=== PATIENT | female | born 1990 | race African-American/Black ===

== ENCOUNTER 2018-05-06 06:04 | Emergency (ER) | payer MEDICAID ==
[~2018-05-06] VITALS: Ht 162.6 cm; Wt 115.0 kg
[2018-05-06 06:15] VITALS: BP 136/80
[2018-05-06 06:28] LABS: GLUCOSE,POINT OF CARE 83 MG/DL (70-110)
[2018-05-06 06:57] LABS: BASOPHILS % (AUTO) 0.8 % (0.0-2.0); EOSINOPHILS % (AUTO) 0.9 % (1.0-6.0); HEMOGLOBIN 13.4 g/dL (12.0-16.0); LYMPHOCYTES # (AUTO) 1.8 K/uL (1.0-4.8); LYMPHOCYTES % (AUTO) 16.5 % (22.0-44.0); MEAN CORPUSCULAR HEMOGLOBIN 27.9 pg (26.0-34.0); MEAN CORPUSCULAR HGB CONC 32.7 G/dL (31.0-37.0); MEAN CORPUSCULAR VOLUME 85 fL (80-100); MONOCYTES # (AUTO) 0.8 K/uL (0.1-1.0); MONOCYTES % (AUTO) 7.1 % (2.0-9.0); NEUTROPHILS # (AUTO) 8.2 K/uL (1.8-7.7); NEUTROPHILS % (AUTO) 74.7 % (40.0-70.0); PLATELET COUNT (AUTO) 257 K/uL (150-450); RED BLOOD CELL COUNT(AUTO) 4.81 MIL/uL (4.00-5.20); RED CELL DISTRIBUTION WIDTH 13.9 % (11.5-14.5)
[2018-05-06 07:22] LABS: ANION GAP 16 mmol/L (8-16); CALCIUM, TOTAL 9.2 mg/dL (8.8-10.5); CARBON DIOXIDE 21 mmol/L (22-29); CHLORIDE 101 mmol/L (98-107); CREATININE 0.76 mg/dL (0.60-1.30); GLOMERULAR FILTR. RATE CALC > 60 mL/min (>60); GLUCOSE,RANDOM 82 mg/dL (70-110); SODIUM SERUM 138 mmol/L (136-145); UREA NITROGEN, BLOOD 13 mg/dL (7-18)
[2018-05-06 07:27] LABS: ALANINE AMINOTRANSFERASE 15 U/L (12-78); ALBUMIN 4.1 g/dL (3.4-5.0); ALKALINE PHOSPHATASE 54 U/L (46-116); ASPARTATE AMINOTRANSFERASE 19 U/L (15-37); BILIRUBIN,TOTAL 0.9 mg/dL (0.1-1.0)
[2018-05-06 07:39] LABS: ACETAMINOPHEN < 2 mcg/mL (10-30)
== END 2018-05-06 08:42 | disposition home or self-care (01) ==
LOC: EMS 06:04
DX: F32.9 Major depressive disorder, single episode, unspecified (principal); F41.9 Anxiety disorder, unspecified; J45.909 Unspecified asthma, uncomplicated; F17.210 Nicotine dependence, cigarettes, uncomplicated; F12.10 Cannabis abuse, uncomplicated; Z88.8 Allergy status to other drugs, medicaments and biological substances
CPT/HCPCS: 36415; 80053; 82962; 85025; 99285; 99406; G0480 ×2; G0481

== ENCOUNTER 2021-05-23 09:14 | Emergency (ER) | payer MEDICAID, OTHER ==
[~2021-05-23] VITALS: Ht 162.6 cm; Wt 61.4 kg
[2021-05-23 09:17] VITALS: BP 110/80
[2021-05-23] MEDS ORDERED: ALBU8HFA IH (09:20)
[2021-05-23] MEDS ORDERED: FLUT44HFA IH (09:20)
[2021-05-23] MEDS ORDERED: LURA60TA PO (09:20)
[2021-05-23] MEDS ORDERED: FLUT16H NASAL (09:20)
[2021-05-23] MEDS ORDERED: SILVER SULFADIAZINE 1% 25 GM CREAM TP ONE (09:45)
[2021-05-23] MEDS ORDERED: ACETAMINOPHEN 325 MG TABLET PO ONE (09:45)
== END 2021-05-23 10:01 | disposition home or self-care (01) ==
LOC: EMS 09:18
DX: T25.211A Burn of second degree of right ankle, initial encounter (principal); Z88.6 Allergy status to analgesic agent; Z79.899 Other long term (current) drug therapy; X10.1XXA Contact with hot food, initial encounter; Y93.89 Activity, other specified; Y92.89 Other specified places as the place of occurrence of the external cause; Y99.8 Other external cause status
CPT/HCPCS: 16020; 99282; Z7502; Z7610